=== PATIENT | male | born 2000 | race Caucasian/White ===

== ENCOUNTER 2025-02-21 01:44 | Emergency (ER) | payer OTHER ==
[2025-02-21 01:53] VITALS: BP 132/74; PULSE 80; RESP 16; TEMP 98.4; BMI 29.0
[2025-02-21] MEDS ORDERED: diphenhydrAMINE HCL 25 MG CAPSULE (FP) PO ONE (02:42)
[2025-02-21] MEDS ORDERED: ACETAMINOPHEN 500 MG TABLET (FP) ONE (02:43)
[2025-02-21] MEDS ORDERED: FAMOTIDINE 20 MG TABLET ONE (02:43)
[2025-02-21] MEDS ORDERED: methylPREDNISolone NA SUCC 125 MG/2 ML VIAL ONE (02:43)
[2025-02-21] MEDS: FAMOTIDINE 20 MG TABLET PO ONE (02:45)
[2025-02-21] MEDS: ACETAMINOPHEN 500 MG TABLET (FP) PO ONE (02:45)
[2025-02-21] MEDS: diphenhydrAMINE HCL 25 MG CAPSULE (FP) PO ONE (02:45)
[2025-02-21] MEDS: methylPREDNISolone ACET (DEPO) 40 MG/1 ML VIAL IM ONE ×2 (03:13→03:43)
[2025-02-21] MEDS: methylPREDNISolone NA SUCC 125 MG/2 ML VIAL IM ONE (03:44)
== END 2025-02-21 03:48 | disposition home or self-care (01) ==
LOC: JER 01:44
PROC: 3E023GC Introduction of Other Therapeutic Substance into Muscle, Percutaneous Approach (ICD-10-PCS; principal; 2025-02-21)
DX: R51.9 Headache, unspecified (principal); R11.2 Nausea with vomiting, unspecified; R21 Rash and other nonspecific skin eruption; T78.1XXA Other adverse food reactions, not elsewhere classified, initial encounter
CPT/HCPCS: 99284-25